=== PATIENT | male | born 1970 | race African-American/Black ===

== ENCOUNTER 2018-12-02 15:58 | Emergency (ER) | payer OTHER ==
[~2018-12-02] VITALS: Ht 170.2 cm; Wt 83.9 kg
[2018-12-02 16:18] LABS: URINE BILIRUBIN NEGATIVE (Negative); URINE BLOOD 1+ (Negative); URINE CLARITY CLEAR; URINE COLOR ORANGE; URINE GLUCOSE-RANDOM* 1+ (Negative); URINE KETONES TRACE (Negative); URINE LEUKOCYTES TRACE (Negative); URINE NITRITE POSITIVE (Negative); URINE PROTEIN (DIPSTICK) 1+ (Negative)
[2018-12-02 16:28] LABS: BACTERIA 1-9 Few /HPF (None Seen); CASTS None Seen /LPF (None Seen); CRYSTALS None Seen /LPF (None Seen); SQUAMOUS None Seen /LPF (0-3); URINE WBC 0-5 Rare /HPF (0-5)
[2018-12-02 16:28] LABS: ABSOLUTE NEUTROPHILS 8.3 thou/uL (1.4-8.2); BASOPHILS 0.8 % (0.0-2.0); EOSINOPHILS 0.8 % (0.0-3.0); HEMATOCRIT 42.4 % (42.0-52.0); HEMOGLOBIN 14.2 gm/dL (14.0-18.0); LYMPHOCYTES 13.2 % (24.0-44.0); MCH 32.2 pg (26.0-34.0); MCHC 33.6 g/dL (28.0-37.0); MONOCYTES 9.3 % (1.0-8.0); PLATELET COUNT 303 thou/uL (150-400); POLYS 75.9 % (36.0-66.0); RBC 4.42 mil/uL (4.50-6.00); RDW 13.1 % (10.5-14.5); WBC 10.9 thou/uL (4.0-11.0)
[2018-12-02] MEDS ORDERED: CLOBETASOL PROP15 GM TOP (16:30)
[2018-12-02] MEDS ORDERED: LISINOPRIL40 MG PO (16:30)
[2018-12-02] MEDS ORDERED: HYDROCHLOROTHIA25 M2 PO (16:30)
[2018-12-02] MEDS ORDERED: TESTOSTERONE75 G1 TOP (16:31)
[2018-12-02 16:36] LABS: CALCIUM 9.6 mg/dL (8.5-10.1); CREATININE 1.6 mg/dL (0.7-1.3)
[2018-12-02 16:42] LABS: TOTAL BILIRUBIN 0.6 mg/dL (<0.1-1.0)
[2018-12-02] MEDS ORDERED: ONDANSETRON HCL4 M2 PO (17:34)
[2018-12-02] MEDS ORDERED: CIPRO500 MG PO (17:34)
[2018-12-02] MEDS ORDERED: NORCO 5-325 TA1 EACH PO (17:34)
[2018-12-02] MEDS ORDERED: FLOMAX0.4 MG PO (17:34)
[2018-12-02 18:31] VITALS: BP 160/98
== END 2018-12-02 18:33 | disposition home or self-care (01) ==
LOC: ER 15:58
PROVIDERS: Emergency Medicine
DX: N13.6 Pyonephrosis (principal); N20.1 Calculus of ureter; N17.9 Acute kidney failure, unspecified; G47.30 Sleep apnea, unspecified; I10 Essential (primary) hypertension; F17.210 Nicotine dependence, cigarettes, uncomplicated; Z88.1 Allergy status to other antibiotic agents; Z88.8 Allergy status to other drugs, medicaments and biological substances